=== PATIENT | male | born 1980 | race American Indian/Alaskan Native ===

== ENCOUNTER 2017-03-21 13:01 | Emergency (ER) | payer OTHER ==
[2017-03-21] MEDS ORDERED: DILAUDID IV ONE (16:19)
[2017-03-21] MEDS ORDERED: ZOFRAN IV ONE (16:19)
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
[2017-03-21 18:11] VITALS: BP 120/85
== END 2017-03-21 18:11 | disposition home or self-care (01) ==
LOC: ED 13:01
DX: S72.8X1A Other fracture of right femur, initial encounter for closed fracture (principal); V89.2XXA Person injured in unspecified motor-vehicle accident, traffic, initial encounter; Y93.89 Activity, other specified; Y99.8 Other external cause status; Y92.89 Other specified places as the place of occurrence of the external cause
CPT/HCPCS: 96374; 96375; 99282; J1170; J2405